=== PATIENT | female | born 1985 | race Caucasian/White ===

== ENCOUNTER 2019-12-10 12:20 | Inpatient (IN) | payer OTHER ==
[~2019-12-10] VITALS: Ht 157.5 cm; Wt 81.6 kg
[2019-12-10 12:41] VITALS: Ht 157.5 cm; Wt 81.6 kg
[2019-12-10 13:16] LABS: BASOPHIL % 0.5 % (0-2); PLATELET COUNT 346 x10^3mcL (130-400); RED CELL DISTRIBUTION WIDTH 13.7 % (11.5-14.5)
[2019-12-10 13:33] LABS: CALCIUM 8.7 mg/dL (8.5-10.1); CARBON DIOXIDE 25.1 mmol/L (21-32); CHLORIDE SERUM 102 mmol/L (98-107); CREATININE SERUM 0.7 mg/dL (0.6-1.0); GFR1 > 60 mL/min; GLUCOSE SERUM 107 mg/dL (74-106); POTASSIUM SERUM 3.5 mmol/L (3.5-5.1); SODIUM SERUM 137 mmol/L (136-145)
[2019-12-10 13:37] LABS: ALBUMIN 4.1 g/dL (3.4-5.0); ALKALINE PHOSPHATASE 56 U/L (46-116); ALT/SGPT 29 U/L (14-59); AST/SGOT 16 U/L (15-37); BILIRUBIN TOTAL 0.53 mg/dL (0.20-1.00); LIPASE 89 IU/L (73-393); TOTAL PROTEIN, SERUM 8.4 g/dL (6.4-8.2)
[2019-12-10 22:55] VITALS: BP 120/74
[2019-12-11 05:57] VITALS: BP 94/51
[2019-12-11 08:30] VITALS: BP 90/51
[2019-12-11] MEDS ORDERED: ACETAMINOPHEN-H1 TA1 PO (10:32)
[2019-12-11 11:18] LABS: BASOPHIL % 0.4 % (0-2); PLATELET COUNT 279 x10^3mcL (130-400); RED CELL DISTRIBUTION WIDTH 13.8 % (11.5-14.5)
[2019-12-11 11:30] LABS: CARBON DIOXIDE 27.3 mmol/L (21-32); CHLORIDE SERUM 106 mmol/L (98-107); CREATININE SERUM 0.7 mg/dL (0.6-1.0); GFR1 > 60 mL/min; GLUCOSE SERUM 106 mg/dL (74-106); POTASSIUM SERUM 3.9 mmol/L (3.5-5.1); SODIUM SERUM 139 mmol/L (136-145)
[2019-12-11 12:43] VITALS: BP 97/56
[2019-12-11 14:14] VITALS: BP 97/56
[2019-12-11 17:54] VITALS: BP 94/62
[2019-12-11 18:27] VITALS: BP 97/56
== END 2019-12-11 19:42 | disposition home or self-care (01) | DRG 343 ==
LOC: ED 12:20 → MU 19:18
PROVIDERS: Emergency Medicine; Hospitalist; Surgery; ADMIT Internal Medicine Pulmonary Disease
PROC: 0DTJ4ZZ Resection of Appendix, Percutaneous Endoscopic Approach (ICD-10-PCS; principal; 2019-12-10 21:00)
DX: K35.80 Unspecified acute appendicitis (principal); D72.829 Elevated white blood cell count, unspecified; Z90.49 Acquired absence of other specified parts of digestive tract
CPT/HCPCS: G0378; J0696; J1170; J1885; J2270; J2405; J2543; J3010; J3490; J7030